=== PATIENT | male | born 1960 | race Caucasian/White ===

== ENCOUNTER 2024-07-08 08:49 | Emergency (ER) | payer MEDICAID ==
[~2024-07-08] VITALS: Ht 190.5 cm; Wt 141.5 kg
[2024-07-08 08:50] VITALS: PULSE 87; RESP 20; TEMP 99.5
[2024-07-08 09:30] LABS: STREPTOCOCCUS GRP A ANTIGEN NEGATIVE (NEGATIVE)
[2024-07-08 09:39] LABS: INFLUENZA A AG NEGATIVE (NEGATIVE); INFLUENZA B AG NEGATIVE (NEGATIVE)
[2024-07-08 09:41] LABS: CORONAVIRUS COVID-19 AG POSITIVE (NEGATIVE)
[2024-07-08] MEDS ORDERED: SINGULAIR10 MG PO (09:59)
[2024-07-08] MEDS ORDERED: GUAIFENESIN-DM1 EAC1 PO (10:39)
[2024-07-08 11:13] VITALS: BP 147/75; PULSE 55; RESP 18; TEMP 99.5; O2SAT 99
== END 2024-07-08 11:17 | disposition home or self-care (01) ==
LOC: ER 08:59
DX: R50.9 Fever, unspecified (principal); U07.1 COVID-19; R05.9 Cough, unspecified; I10 Essential (primary) hypertension; I48.91 Unspecified atrial fibrillation; I25.10 Atherosclerotic heart disease of native coronary artery without angina pectoris; Z87.442 Personal history of urinary calculi
CPT/HCPCS: 71046; 83518; 87070; 99283